=== PATIENT | female | born 1990 | race Caucasian/White ===

== ENCOUNTER → 2020-05-18 10:34 | Outpatient (CLI) | payer BC, SELFPAY ==
--- NOTE | 2020-05-18 10:44 | RAD_ITS ---
INDICATION: CHRONIC BACK PAIN 1 YEAR EXAMINATION/TECHNIQUE: X-RAY - XR Spine Lumbar Min 4 Views COMPARISON: None. FINDINGS: VERTEBRAE: Preserved vertebral body height. No fracture. No spondylolisthesis. Preservation of the normal lumbar lordosis. No significant facet arthropathy. DISCS: Disc spaces are maintained. INCLUDED ABDOMEN: Included bowel gas pattern is non-obstructive. RAD/L/S Spine Min 4 Views IMPRESSION: No acute abnormalities. Electronically Signed: Stephen Espinoza MD at 19:50 EDT Tel , Service support ,
== END ==
LOC: RAD 10:39
DX: M54.9 Dorsalgia, unspecified (principal)
CPT/HCPCS: 72110

== ENCOUNTER 2020-06-29 16:30 | Outpatient (RCR) | payer BC, SELFPAY ==
--- NOTE | 2020-06-01 07:58 | HP.PTEVAL ---
Patient's Visit Information AMAIRANI ZAVALA is a 29 year old F referred to Physical Therapy by JOSE PUENTES with a diagnosis of Low Back Pain. Date of Evaluation: 06/01/20 Physical Therapist: Lolita Davidson DPT - Visit Plan Frequency: 2x /Week Duration: 4 Weeks Plan: Ultrasound and E-stim as modalities of choice- Neutral spine with progression as tolerated- core strength/stabilization. HEP Given IE: TA contraction, Bridge, Hip add, hip abd, and supine dural stretching - Subjective Patient reports that she has had back pain for about a year. Bent over to pick something up and then she could not walk for 3 days. Now its more intermitent- when she sleeps and then getting up in the AM. Work: [employer]- lifts 50# repetitively- she has been off so its not as bad. Work really flares her up. She tries not to bend, lift and twist. Only carries up to a laundry basket at home. Work: 07/23 Agg: work, bending, lifting, laying on her back or stomach. Eases: ice pack Best: 0/10. Pain is located along the belt line- more left than right but can go both sides. Has had right leg pain but that is not very common- mostly just in the back. Describes the back pain as shooting and achy- leg pain described as shooting. The leg pain radiated past the knee. No N/T the feet. No loss of change in bowel or bladder. No buckling of the knees or legs feeling weakness. Sleep: disturbed- side sleeper with a pillow between her knees- when turning has to shift her hips. 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 No trauma or car accidents of the lumbar spine. Once she gets up and moving she is better. Likes to work out but is afraid to get back to it soon. X-rays which were negative and no MRI. PMHx/Meds: potassium and vitamin D. - Objective Posture: FH, RS- can correct with verbal and tactile cues but does not maintain. Gait: decreased arm swing and trunk rotation- slow minoo. HR/TR: able without incidence. SLS; 30 sec without LOB. Sit to Stand: slow but able without UE A- reports discomfort. Sensation: WFL to gross touch bilaterally. Reflex: patellar: WFL bilaterally. ROM: Lumbar: Flexion: hands to knee, Extn: neutral, SB: decreased by 50% bilateral, rotat: decreased by 75% bilateral- all reports pain. Hip: flexion: 90 degrees with pain- all other motions WFL, Knee/Ankle: WFL. Strength: Core: poor, Hip: 4/5 throughout with discomfort, Knee: 5/5, Ankle: 5/5. Flex: HS: severe, Gastroc: severe. Quad: moderate. Special Test: LLD: negative, Scour: negative, Pelvic Alignment: WFL, Slump: negative, SLR: positive, Dural Signs: positive bilateral right>left, Extn: increased pain, Flexion: increased pain - Goals Goal 1:: Patient will be I with HEP and progression Goal Time Frame: 4-6 Weeks Goal 2:: Patient will maintain proper posture t/o tx session to demo increased core s/s. Goal Time Frame: 4-6 Weeks Goal 3:: Patient will ift #50 floor to waiste x10 with good technique Goal Time Frame: 4-6 Weeks Goal 4:: Patient will report no more than 2/10 pain for 1 week - Rehabilitation Potential Physical Therapy Diagnosis: Patient presents with hypomobility-she has decreased ROM, strength, flexibility and muscular endurance leading to poor posture and increased pain with ADL's. Rehabilitation Potential: Good - Anticipated Interventions Patient/Client Instruction: Educate patient on: Benefits of Fitness Program Therapeutic Exercise to Include: Strength training, Endurance training, Body mechanics, Postural training, Flexibilty training, Gait and locomotor training, Neuromotor development, Passive ROM, Active ROM, Dynamic Lumbar Stabilization, Scapular Strength/Stabilization For the Purpose of:: To improve muscle performance and motor function TENS: Yes Cryotherapy (ice pack, ice massage): Yes Thermo therapy (hot pack): Yes Ultrasound (thermal/non thermal): Yes Thank you for the opportunity to evaluate your patient. For Medicare and Medicare HMO plans, please review the plan of care and approve it. It will need to be FAXED BACK to us at [phone] for Medicare purposes. For Medicare only, by signing this I certify the plan of care. Please let me know if there are questions or concerns regarding this plan of care. Physician Signature: Date:
== END 2020-06-29 19:00 | disposition home or self-care (01) ==
LOC: PT 16:30
DX: M54.5 Low back pain (principal); G89.29 Other chronic pain
CPT/HCPCS: 97014; 97035; 97110; 97162; G0283

== ENCOUNTER → 2020-09-28 15:32 | Outpatient (CLI) | payer BC, SELFPAY ==
--- NOTE | 2020-09-28 | CER_PTH ---
PATIENT: AMAIRANI ZAVALA LOC: [facility]#:[id number] AGE/SX: 34/F ROOM: RE09/28/[address]: Dr. Larry Rolle MD : 1990 BED: DIS: SPEC #: [id number] RECD: 09/28/20 17:03 STATUS: ISIS GUILLENRosaura #: [id number] AGUILA: 09/28/20 00:[address]: Larry Rolle DEPT: SURGICAL PATHOLOGY RECD BY: Charles Campo Tissues: A - Uterine cervix, NOS B - Endocervical Procedures: Surgery Specimen Level IV HEADER OPERATION: Colposcopy PRE-OP DIAGNOSIS: Positive HPV TISSUE SUBMITTED: A ? Cervical at 5, 7 and 11 o?clock, B - ECC MICROSCOPIC DIAGNOSIS A. Cervix at 5, 7 and 11 o?clock, biopsy: Fragments of squamous mucosa with mild chronic inflammation. Negative for dysplasia. See comment. B. ECC: Fragments of benign ecto- and endocervical epithelium, negative for dysplasia. GABRIEL:jose luis 09/30/2020 COMMENT A. Transitional zone mucosa is not seen in the specimen. Clinical correlation and appropriate follow up are necessary. MICROSCOPIC DESCRIPTION Slides are reviewed. GROSS DESCRIPTION A - Received in fixative is one container labeled with the patient's name and designated cervical. The specimen consists of two irregular fragments of light valdez soft tissue that in aggregate measure 1 x 0.7 x 0.1 cm. The specimen is totally submitted in one cassette. B - Received in fixative is one container labeled with the patient's name and designated ECC. The specimen consists of multiple minute fragments of light valdez tissue that in aggregate measure <0.1 x <0.1 x <0.1 cm. The specimen is submitted for cell block preparation. / AM:jose luis 09/29/20 TC:3 CPT: 92203 x2
== END ==
PROVIDERS: Visit Provider Obstetrics & Gynecology
DX: A63.0 Anogenital (venereal) warts (principal)
CPT/HCPCS: 88305

== ENCOUNTER → 2021-01-04 15:11 | Outpatient (CLI) | payer BC, SELFPAY ==
[2021-01-04 17:05] LABS: T4 Free Direct 1.28 ng/dL (0.76-1.46)
== END ==
PROVIDERS: PCP Thoracic Surgery (Cardiothoracic Vascular Surgery); Referring Provider Internal Medicine Endocrinology, Diabetes & Metabolism; Visit Provider Internal Medicine Endocrinology, Diabetes & Metabolism
DX: E06.3 Autoimmune thyroiditis (principal)
CPT/HCPCS: 36415; 84439; 84443